=== PATIENT | male | born 1970 | race Caucasian/White ===

== ENCOUNTER → 2020-05-30 11:15 | Outpatient (CLI) | payer BC, SELFPAY ==
[2020-05-30 13:45] LABS: Free T4 (Free Thyroxine) 0.71 ng/dl (0.78-2.19)
[2020-05-30 13:59] LABS: Thyroid Stimulating Hormone 1.67 uIU/mL (0.465-4.68)
[2020-05-30 14:13] LABS: Coronavirus 19 IgG Antibody Negative (Negative); Coronavirus 19 IgM Antibody Negative (Negative)
== END ==
PROVIDERS: Visit Provider Internal Medicine Cardiovascular Disease
DX: Z01.818 Encounter for other preprocedural examination (principal); Z20.822 Contact with and (suspected) exposure to COVID-19; R00.0 Tachycardia, unspecified; R00.2 Palpitations; I10 Essential (primary) hypertension; Z82.49 Family history of ischemic heart disease and other diseases of the circulatory system; Z87.891 Personal history of nicotine dependence
CPT/HCPCS: 36415; 84439; 84443; 86328

== ENCOUNTER → 2020-06-26 07:40 | Outpatient (CLI) | payer SELFPAY ==
--- NOTE | 2020-06-26 07:40 | CT_ITS ---
PROCEDURE: CT HEART W CALCIUM SCORE CLINICAL HISTORY: eval for CAD COMPARISON: No exams were available for comparison TECHNIQUE: Axial images obtained with sagittal and coronal reformats. All CT scans at the facility use one or more dose reduction, viz: automated exposure control, ma/kV adjustment per patient size (including targeted exams where dose is matched to indication, i.e. head), or iterative reconstruction technique. FINDINGS: The coronary artery calcium score is 258. Moderate calcific plaque burden with high cardiovascular disease risk The heart size is normal. There is a noncalcified nodule in the right lower lobe anteriorly image 20 measuring 5 mm. Just lateral to this is a calcified nodule.. There is a noncalcified 3 mm nodule in the left major fissure area IMPRESSION: Moderate calcific plaque burden with high cardiovascular disease risk Noncalcified nodule right lower lobe at 5 mm. Consider 6-[address] follow-up Dictated by: Nito Busby MD 06/26/2020 09:49 Nito Busby MD in [place] 06/26/2020 09:49
== END ==
PROVIDERS: PCP Family Medicine; Visit Provider Internal Medicine Cardiovascular Disease
DX: Z13.6 Encounter for screening for cardiovascular disorders (principal); I10 Essential (primary) hypertension; R00.0 Tachycardia, unspecified; R00.2 Palpitations; Z82.49 Family history of ischemic heart disease and other diseases of the circulatory system; Z87.891 Personal history of nicotine dependence
CPT/HCPCS: 75571

== ENCOUNTER → 2020-06-26 07:45 | Outpatient (CLI) | payer BC, SELFPAY ==
--- NOTE | 2020-06-26 07:59 | CA_ITS ---
APPROVED REPORT EXAM: Comprehensive 2D, Doppler, and color-flow Echocardiogram Roof Technician: Vandana Herrera RVT Ht: 5 ft 5 in Wt: 172lbs BSA: 1.86 BP: 143/89 mmHg Indications: PALPS,TACHYCARDIA,HTN,EX SMOKER 2D Dimensions LVOT 1.68 cm (M/F) 1.5-2.5 LA Volume 33.80 mL LA Volume Index 18.27 mL/m2 (M/F) 16-34 M-Mode Dimensions RVDd 2.21 cm (0.9-2.6) LA Diam 3.60 cm (1.9-4.0) LVDd 4.29 cm (3.5-5.7) Ao Diam 2.79 cm (2.0-3.7) LVDs 2.75 cm (3.5-5.7) IVSd 0.80 cm (0.6-1.1) PWd 0.60 cm (0.6-1.1) EF (Teich) 65.70% FS 35.90% EDV (Teich) 82.60 mL TAPSE 1.72 (<1.7) ESV (Teich) 28.30 mL LV Diastology E Decel Time 157.00 (160-240 msec) E/A Ratio 1.1 MED E' 8.90 (< 7 cm/sec) E'/MED E' Ratio 9.02 (>14) LAT E' 11.30 (<10 cm/sec) E/LAT E' Ratio 7.11 (>14) Mitral Valve MV E Max Nasir. 80.00 (40-130 cm/s) MV A Velocity 76.00 (40-130 cm/s) E/A Ratio 1.05 MV Decel. Time 157.00 (160-240 ms) MV PHT 46.00 ms Pulmonary Valve PV Peak Velocity 84.00 (50-150 cm/s) Tricuspid Valve TR P. Velocity 188.00 cm/s RAP Estimate 10.00 mmHg RVSP 24.10 mmHg Left Ventricle Left atrium is normal size, left ventricle is normal size, there is no concentric left ventricular hypertrophy, visually estimated ejection fraction 55% with no regional wall motion abnormality, diastolic parameters are within normal range. Right Ventricle Right atrium is normal size, right ventricle is mildly enlarged with normal contractility. Aortic Valve Aortic valve is minimally thickened and fibrosed, there is no aortic stenosis or aortic insufficiency. Mitral Valve Mitral valve is grossly normal, there is trace mitral regurgitation. Tricuspid Valve Tricuspid grossly normal, there is trace tricuspid regurgitation, tricuspid regurgitation jet velocity is inadequate for calculation of the right ventricular systolic pressure. Pulmonic Valve Pulmonic valve is poorly visualized. Great Vessels Aortic root is normal size. Pericardium No significant pericardial effusion noted. Conclusion 1. Normal left ventricular size, preserved left ventricular systolic function, visually estimated ejection fraction 55% with no regional wall motion abnormality, diastolic parameters are within normal range. 2. Mildly enlarged right ventricle with normal contractility. 3. Trace mitral and tricuspid regurgitation. 4. No significant pericardial effusion noted. Electronically signed by : Sanjiv Weinstein, 06/27/2020 10:17:57
== END ==
PROVIDERS: PCP Family Medicine; Visit Provider Internal Medicine Cardiovascular Disease
DX: R00.2 Palpitations (principal); R00.0 Tachycardia, unspecified; I10 Essential (primary) hypertension; Z82.49 Family history of ischemic heart disease and other diseases of the circulatory system; Z87.891 Personal history of nicotine dependence
CPT/HCPCS: 93306

== ENCOUNTER → 2020-07-08 06:09 | Outpatient (CLI) | payer BC, SELFPAY ==
--- NOTE | 2020-07-08 06:10 | CA_ITS ---
APPROVED REPORT Exam: Exercise Treadmill Technologist: ailyn herman, Ht: 5 ft 6 in Wt: 171 lbs BSA: 1.87 m2 HR: 80 bpm BP: 153/101 mmHg Indications: Palp, CP Medical History Medications: Asa,,,,, Losartan,,,,, Crestor,,,,, BisOPROLOL,,,,, PaXIL,,,,, Fumarate,,,,, Allergies: NKA Cardiac Risk Factors: HTN, Smoking Stress Test Details Test: Alonso HR Resting HR: 76 bpm Max Heart Rate (APMHR): 168.340519 bpm Max HR Achieved: 168 bpm Target HR (85% APMHR): 142.346887 bpm % of APMHR: 100.00 Recovery HR: 135 bpm BP Resting BP: 153.0/101.0 mmHg Max BP: 168.0/86.0 mmHg Recovery BP: 166.0/88.0 mmHg ECG Clinical Reason for Termination: Dyspnea Exercise duration: 09:00 min Highest Stage Achieved: Stage 3: 3.4 mph at 14% grade. Exercise capacity: 10.1 METs Stress ECG Conclusion No chest pain. No arrhythmia or ectopy. Less than 1.5mm ST Segment changes. Negative stress. Test Summary REST . . . . . . . Standing REST . . . . . . . Sitting REST 03:34 0.0 1.2 76 . 153/101 . . Stage 1 01:00 10.0 1.7 111 . . . . Stage 1 02:00 10.0 1.7 123 . 156/ 96 . . Stage 1 03:00 10.0 1.7 136 . 156/ 96 . . Stage 2 01:00 12.0 2.5 148 . . . . Stage 2 02:00 12.0 2.5 156 . . . . Stage 2 03:00 12.0 2.5 162 . 162/100 . . Stage 3 . . . . . . . Cardiolite injected Stage 3 01:00 14.0 3.4 164 . . . . Stage 3 02:00 14.0 3.4 168 . . . . Stage 3 03:00 14.0 3.4 167 . 164/ 98 . Stop exercise at 09:00 RECOVERY 01:00 0.0 0.0 143 . . . . RECOVERY 02:00 0.0 0.0 121 . 166/ 88 . . RECOVERY 03:00 0.0 0.0 115 . 166/ 88 . . RECOVERY 04:00 0.0 0.0 113 . 168/ 86 . . RECOVERY 05:00 0.0 0.0 105 . 168/ 95 . . RECOVERY 06:00 0.0 0.0 105 . 168/ 95 . . RECOVERY 07:00 0.0 0.0 100 . 168/ 95 . . RECOVERY 08:00 0.0 0.0 103 . 138/ 96 . . RECOVERY 09:00 0.0 0.0 0 . 138/ 96 . . RECOVERY 09:11 0.0 0.0 0 . 138/ 96 . . Electronically signed by : Sanjiv Weinstein, 07/08/2020 18:32:44
--- NOTE | 2020-07-08 06:10 | NM_ITS ---
APPROVED REPORT Exam: Nuclear Stress Test Indication: Chest pain, Palpitations, Abn ECHO, HTN, Former tobacco use, Family history Patient Location: Outpatient Stress Tech: Melani Eisenberg [place] Tech:Maddie Mascorro, ARRT, RT (R)(N) Ht: 5 ft 5 in Wt: 162 lbs HR: 80 bpm BP: 153/101 mmHg BSA: 1.81 m2 BMI: 26.9 History: Chest pain, Palpitations, Abn ECHO, HTN, Former tobacco use, Family history Procedure: Patient exercised on Alonso protocol 9:00 minutes and sec, resting heart rate 80 bpm, resting blood pressure 153/101 mmHg, with exercise maximum heart rate achived was 168 bpm which is 117 % of the maximum predicted heart rate and blood pressure was 164/98 mmHg. Test was stopped due to SOA. Patient denied any complaint of chest pain. Patient has Good exercise capacity, achieved 10.1 METs of workload on treadmill, the blood pressure response to exercise was Hypertensive. Electrocardiogram Resting electrocardiogram showed sinus rhythm, with exercise there is less than 1.[address] segment depression noted from the baseline EKG. The EKG portion of the exercise Myoview is negative for ischemia. Cardiac Stress and Resting SPECT Images: Cardiac Stress and Resting SPECT images were obtained using technetium 99m Myoview 31.3 mCi stress and 10.22 mCi at rest. Gated SPECT for analysis of segmental wall motion and calculation of the ejection fraction also done. Cardiac stress and resting SPECT images show uniform myocardial activity without segmental perfusion abnormality, computer derived ejection fraction is 49% with no regional wall motion abnormality, right ventricle is mildly enlarged with normal contractility. Prone images were not obtained. Conclusion: 1. The EKG portion of the exercise Myoview is negative for ischemia, patient has good exercise capacity achieved 10.1 METs of workload on treadmill, the blood pressure response to exercise was hypertensive, there was no exercise-induced chest discomfort. 2. No scintigraphic evidence of reversible ischemia seen, computer derived ejection fraction 49%, with no regional wall motion abnormality, right ventricle mildly enlarged with normal contractility, prone images were not obtained. Electronically signed by : Sanjiv Weinstein, 07/09/2020 21:49:49
--- NOTE | 2020-07-08 08:13 | HMH.ITSHM ---
Current Home Medications as stated by this patient Bartolome Woods or premium service representative. []PAXIL LOSARTAN ROSUVASTATIN BISOPROLOL ASA
== END ==
PROVIDERS: PCP Family Medicine; Visit Provider Internal Medicine Cardiovascular Disease
DX: R06.00 Dyspnea, unspecified (principal); R93.1 Abnormal findings on diagnostic imaging of heart and coronary circulation; I10 Essential (primary) hypertension; Z87.891 Personal history of nicotine dependence
CPT/HCPCS: 78452; 93017; A9502

== ENCOUNTER → 2021-01-14 13:24 | Outpatient (CLI) | payer BC, SELFPAY ==
--- NOTE | 2021-01-14 13:24 | CT_ITS ---
PROCEDURE: CT CHEST W CON CLINCAL INDICATION: pulmonary nodule COMPARISON: CT CT HEART W CALCIUM SCORE from 06/26/2020 TECHNIQUE: IV Contrast: 75ml Isovue 370 Axial images obtained with sagittal and coronal reformats. All CT scans at the facility use one or more dose reduction, viz: automated exposure control, ma/kV adjustment per patient size (including targeted exams where dose is matched to indication, i.e. head), or iterative reconstruction technique. FINDINGS: HEART AND MEDIASTINAL STRUCTURES: Coronary artery calcifications. LUNGS AND PLEURAL SPACES: 5 mm noncalcified nodules once again noted in the right lower lobe not significantly changed. Small fissural nodules present on the left at 3 mm unchanged. There are few other small nodular opacities most of which are calcified. No suspicious nodules are evident. No effusions or infiltrates. BONY STRUCTURES: No acute bony abnormalities apparent. UPPER ABDOMEN: Unremarkable. ADDITIONAL FINDINGS: No other significant abnormalities. IMPRESSION: Benign-appearing small nodules present as described above. No change in the 5 mm nodule in the right lower lobe. Suggest 12 month follow-up in this patient with smoking history Coronary artery disease Dictated by: Nito Busby MD 01/15/2021 18:18 Nito Busby MD in [place] 01/15/2021 18:18
[2021-01-14 15:47] LABS: Alanine Aminotransferase 27 U/L (12-78); Albumin Level 4.6 g/dl (3.5-5.0); Alkaline Phosphatase 82 U/L (38-126); Aspartate Amino Transferase 32 U/L (17-59); Bilirubin,Total 0.5 mg/dl (0.2-1.3); Chol/HDL Ratio 1.2 (1-3.5); Cholesterol 126 mg/dl (140-200); HDL Cholesterol 105 mg/dl (40-60); Total Protein,Serum 7.1 g/dl (6.3-8.2); Triglycerides 60 mg/dl (30-150); VLDL Cholesterol 12 mg/dL (0-40)
[2021-01-14 15:59] LABS: Direct LDL Cholesterol 49.83 mg/dL (100-129)
[2021-01-14 19:42] LABS: Bilirubin,Unconjugated 0.2 mg/dL (0.0-1.1)
[2021-01-14 19:43] LABS: Bilirubin,Direct 0.2 mg/dl (0.0-0.4); Bilirubin,Indirect 0.2 mg/dL (0.0-0.9)
== END ==
PROVIDERS: PCP Family Medicine; Visit Provider Nurse Practitioner Family
DX: E78.2 Mixed hyperlipidemia (principal); I10 Essential (primary) hypertension; I25.10 Atherosclerotic heart disease of native coronary artery without angina pectoris; R91.1 Solitary pulmonary nodule; R93.1 Abnormal findings on diagnostic imaging of heart and coronary circulation
CPT/HCPCS: 36415; 71260; 80061; 80076; Q9967

== ENCOUNTER → 2021-03-13 09:26 | Outpatient (CLI) | payer BC, SELFPAY | PROVIDERS: PCP Family Medicine; Visit Provider Nurse Practitioner | DX: Z20.822 Contact with and (suspected) exposure to COVID-19 (principal) | CPT/HCPCS: C9803; U0003; U0005 ==